=== PATIENT | male | born 2000 | race Hispanic/Latino ===

== ENCOUNTER 2020-10-29 16:13 | Emergency (ER) | payer OTHER ==
[~2020-10-29] VITALS: Ht 172.7 cm; Wt 86.9 kg
[2020-10-29 18:05] VITALS: BP 132/80
== END 2020-10-29 18:10 | disposition home or self-care (01) ==
LOC: M ED 16:13
DX: M79.621 Pain in right upper arm (principal); T50.Z95A Adverse effect of other vaccines and biological substances, initial encounter; F17.200 Nicotine dependence, unspecified, uncomplicated; Z88.0 Allergy status to penicillin